=== PATIENT | male | born 1990 | race Caucasian/White ===

== ENCOUNTER 2017-06-10 18:21 | Inpatient (IN) | payer MEDICAID ==
[~2017-06-10] VITALS: Ht 185.4 cm; Wt 70.9 kg
[2017-06-10] MEDS ORDERED: 0.9% SODIUM CHLORIDE 10 ML SYRINGE IVP PRN (18:30)
[2017-06-10 18:51] LABS: BASOPHILS % (AUTO) 0.4 % (0.0-2.0); EOSINOPHILS % (AUTO) 1.1 % (1.0-6.0); HEMATOCRIT 43.4 % (41-53); HEMOGLOBIN 15.2 g/dL (13.5-17.5); LYMPHOCYTES # (AUTO) 2.7 K/uL (1.0-4.8); LYMPHOCYTES % (AUTO) 32.4 % (22.0-44.0); MEAN CORPUSCULAR HEMOGLOBIN 33.1 pg (26.0-34.0); MEAN CORPUSCULAR HGB CONC 34.9 G/dL (31.0-37.0); MEAN CORPUSCULAR VOLUME 95 fL (80-100); MONOCYTES # (AUTO) 0.8 K/uL (0.1-1.0); NEUTROPHILS # (AUTO) 4.7 K/uL (1.8-7.7); NEUTROPHILS % (AUTO) 56.1 % (40.0-70.0); PLATELET COUNT (AUTO) 262 K/uL (150-450); RED BLOOD CELL COUNT(AUTO) 4.58 MIL/uL (4.50-5.90); RED CELL DISTRIBUTION WIDTH 12.9 % (11.5-14.5)
[2017-06-10 19:07] LABS: ANION GAP 9 mmol/L (8-16); CALCIUM, TOTAL 9.6 mg/dL (8.8-10.5); CARBON DIOXIDE 27 mmol/L (22-29); CHLORIDE 101 mmol/L (98-107); CREATININE 1.33 mg/dL (0.60-1.30); GLOMERULAR FILTR. RATE CALC > 60 mL/min (>60); GLUCOSE,RANDOM 100 mg/dL (70-110); POTASSIUM 3.8 mmol/L (3.5-5.1); SODIUM SERUM 137 mmol/L (136-145); UREA NITROGEN, BLOOD 16 mg/dL (7-18)
[2017-06-10 19:12] LABS: ALANINE AMINOTRANSFERASE 35 U/L (12-78); ALBUMIN 4.7 g/dL (3.4-5.0); ALKALINE PHOSPHATASE 52 U/L (46-116); ASPARTATE AMINOTRANSFERASE 57 U/L (15-37); BILIRUBIN,TOTAL 1.1 mg/dL (0.1-1.0); TOTAL PROTEIN, SERUM 8.1 g/dL (6.4-8.2)
[2017-06-10 19:25] LABS: SALICYLATE < 2.8 mg/dL (2.8-20.0)
[2017-06-10 20:22] LABS: AMPHET/METH SCREEN,URINE NEGATIVE (NEGATIVE); BARBITURATE SCREEN, URINE NEGATIVE (NEGATIVE); BENZODIAZEPINES SCREEN,URINE NEGATIVE (NEGATIVE); CANNABINOID SCREEN,URINE POSITIVE (NEGATIVE); COCAINE SCREEN,URINE NEGATIVE (NEGATIVE); METHADONE SCREEN, URINE NEGATIVE (NEGATIVE); OPIATE SCREEN,URINE NEGATIVE (NEGATIVE)
[2017-06-10 20:25] LABS: PHENCYCLIDINE SCREEN,URINE NEGATIVE (NEGATIVE)
[2017-06-10] MEDS ORDERED: LORazepam 2 MG/ML VIAL IM ONE (21:00)
[2017-06-10] MEDS ORDERED: DiphenhydrAMINE HCL 50 MG/ML VIAL IM ONE (21:00)
[2017-06-10] MEDS ORDERED: HALOPERIDOL LACTATE 5 MG/ML VIAL IM ONE (21:00)
[2017-06-10] MEDS ORDERED: ZOLPIDEM TARTRATE 10 MG TABLET PO PRN (21:15)
[2017-06-10 21:25] LABS: ACETAMINOPHEN < 2 mcg/mL (10-30)
[2017-06-11 16:02] VITALS: BP 136/92
[2017-06-11] MEDS ORDERED: INFLUENZA VIRUS VACCINE QVS 2017-18 (3YR+)/PF 60 MCG/0.5 ML SYRINGE IM ONE (17:00)
[2017-06-11] MEDS: LORazepam 2 MG TABLET PO PRN ×2 (17:30→19:38)
[2017-06-11] MEDS: HALOPERIDOL 5 MG TABLET PO PRN ×2 (17:30→19:38)
[2017-06-12 04:40] VITALS: BP 124/79
[2017-06-12 08:17] VITALS: BP 136/82
[2017-06-12] MEDS: HALOPERIDOL 5 MG TABLET PO PRN ×2 (08:44→17:10)
[2017-06-12] MEDS: LORazepam 2 MG TABLET PO PRN ×2 (08:44→17:09)
[2017-06-12 16:00] VITALS: BP 124/68
[2017-06-13 01:56] VITALS: BP 126/86
[2017-06-13] MEDS ORDERED: INFLUENZA VIRUS VACCINE QVS 2017-18 (3YR+)/PF 60 MCG/0.5 ML SYRINGE IM ONE (06:30)
[2017-06-13 08:16] VITALS: BP 138/84
[2017-06-13] MEDS: HALOPERIDOL 5 MG TABLET PO PRN ×2 (09:00→16:11)
[2017-06-13] MEDS: LORazepam 2 MG TABLET PO PRN ×2 (09:01→16:11)
[2017-06-13 16:00] VITALS: BP 130/84
[2017-06-14 01:44] VITALS: BP 140/82
[2017-06-14 08:08] VITALS: BP 138/73
[2017-06-14] MEDS ORDERED: ARIPiprazole 5 MG TABLET PO SCH (09:00)
[2017-06-14] MEDS ORDERED: ARIP5TAB8 PO (11:06)
== END 2017-06-14 15:15 | disposition home or self-care (01) | DRG 751 ==
LOC: EMS 18:23 → B3A 06-11 13:50
PROVIDERS: ADMIT Psychiatry & Neurology Child & Adolescent Psychiatry; ATTEND Psychiatry & Neurology Child & Adolescent Psychiatry
DX: F29 Unspecified psychosis not due to a substance or known physiological condition (principal); F22 Delusional disorders; F12.90 Cannabis use, unspecified, uncomplicated; Z59.0 Homelessness
CPT/HCPCS: 80074; 87081; 90471; 93005; 96372; 99285; G0480; G0481; J1200; J1630; J2060